=== PATIENT | female | born 2005 ===

== ENCOUNTER 2023-01-03 17:08 | Outpatient (CLI) | payer OTHER | END 2023-01-03 17:09 | disposition home or self-care (01) | LOC: RAD 17:08 → EDSTATUS 17:15 | PROVIDERS: ATTEND Preventive Medicine Occupational Medicine | DX: M25.561 Pain in right knee (principal); M54.50 Low back pain, unspecified; Z98.1 Arthrodesis status | CPT/HCPCS: 72100 ==